=== PATIENT | female | born 1995 | race American Indian/Alaskan Native ===

== ENCOUNTER 2017-11-03 20:15 | Emergency (ER) | payer BC, OTHER ==
[2017-11-03 20:37] VITALS: BP 121/73
[2017-11-03] MEDS ORDERED: TESSALON PERLES PO ONE (22:58)
[2017-11-03] MEDS ORDERED: MOTRIN PO ONE (22:58)
--- NOTE | 2017-11-03 23:53 | XRay Report ---
FINAL REPORT EXAM: XR CHEST ROUTINE 2V HISTORY: Cough TECHNIQUE: PA and lateral views of the chest were obtained. PRIORS: None. FINDINGS: There are no focal consolidations to suggest pneumonia. No large pleural effusion. No pneumothorax. Cardiac silhouette and mediastinal structures are unremarkable. No acute osseous abnormality identified. IMPRESSION: No radiographic evidence of acute cardiopulmonary disease.
--- NOTE | 2017-11-04 00:19 | Emergency Department Report ---
- General Chief Complaint: Upper Respiratory Infection Stated Complaint: FLU LIKE SX Time Seen by Provider: 11/03/17 23:43 Source: patient Mode of arrival: Ambulatory Limitations: No Limitations - History of Present Illness Initial Comments: This is a 22-year-old male nontoxic, well nourished in appearance, no acute signs of distress presents to the ED with c/o of productive cough, fever, chills , sore throat, rhinorrhea, nasal congestion x2 days. Patient describes productive cough as yellow mucus production. Patient denies any sick contact. Patient denies any recent travels, long car, recent hospital stays. Patient denies any calf pain or calf tenderness. Patient denies any chest pain, short of breath, fever, chills, nausea, vomiting, hemoptysis, numbness, tingling, headache or stiff neck. Patient denies any allergies or PMH. MD Complaint: fever, cough, sore throat, rhinorrhea, nasal congestion -: days(s) (2) Severity: mild Severity scale (0 -10): 8 Quality: aching Consistency: constant Improves With: nothing Worsens With: nothing Associated Symptoms: fever, chills, rhinorrhea, nasal congestion, sore throat, cough. denies: myalgias, diaphoresis, headache, stiff neck, chest pain, shortness of breath, abdominal pain, nausea, vomiting, diarrhea, dysuria, rash, confusion, right sweats, weight loss, epistaxis, hoarseness, ear pain Treatments Prior to Arrival: none - Related Data Previous Rx's Medication Instructions Recorded Last Taken Type Amoxicillin/Potassium Clav 1 tab PO BID #20 tab.er.12h 08/31/15 Unknown Rx [Augmentin XR 1000MG 12HR] Ibuprofen [Motrin] 800 mg PO Q8HR PRN #45 tablet 08/31/15 Unknown Rx Prednisone [predniSONE 10 mg 10 mg PO .TAPER #1 tab.ds.pk 08/31/15 Unknown Rx (6-Day Pack, 21 Tabs)] Azithromycin [Zithromax Z-SHAHID] 250 mg PO DAILY #6 tablet 11/04/17 Unknown Rx Benzonatate [Tessalon Perle] 100 mg PO Q6H PRN #20 capsule 11/04/17 Unknown Rx Ibuprofen [Motrin] 600 mg PO Q8H PRN #30 tablet 03/30/18 Unknown Rx Prednisone [predniSONE 10 mg 10 mg PO .TAPER #1 tab.ds.pk 11/04/17 Unknown Rx (6-Day Pack, 21 Tabs)] Allergies Allergy/AdvReac Type Severity Reaction Status Date / Time No Known Allergies Allergy Unverified 08/31/15 09:08 ED Review of Systems ROS: Stated complaint: FLU LIKE SX Other details as noted in HPI Constitutional: chills, fever Eyes: denies: eye pain, eye discharge, vision change ENT: denies: ear pain, throat pain Respiratory: cough. denies: shortness of breath, wheezing Cardiovascular: denies: chest pain, palpitations Endocrine: no symptoms reported Gastrointestinal: denies: abdominal pain, nausea, diarrhea Genitourinary: denies: urgency, dysuria, discharge Musculoskeletal: denies: back pain, joint swelling, arthralgia Skin: denies: rash, lesions Neurological: denies: headache, weakness, paresthesias Psychiatric: denies: anxiety, depression Hematological/Lymphatic: denies: easy bleeding, easy bruising ED Past Medical Hx - Past Medical History Previous Medical History?: No - Surgical History Past Surgical History?: No - Social History Smoking Status: Current Every Day Smoker Substance Use Type: None - Medications Home Medications: Home Medications Medication Instructions Recorded Confirmed Last Taken Type Amoxicillin/Potassium Clav 1 tab PO BID #20 tab.er.12h 08/31/15 Unknown Rx [Augmentin XR 1000MG 12HR] Ibuprofen [Motrin] 800 mg PO Q8HR PRN #45 tablet 08/31/15 Unknown Rx Prednisone [predniSONE 10 mg 10 mg PO .TAPER #1 tab.ds.pk 08/31/15 Unknown Rx (6-Day Pack, 21 Tabs)] Azithromycin [Zithromax Z-SHAHID] 250 mg PO DAILY #6 tablet 11/04/17 Unknown Rx Benzonatate [Tessalon Perle] 100 mg PO Q6H PRN #20 capsule 11/04/17 Unknown Rx Ibuprofen [Motrin] 600 mg PO Q8H PRN #30 tablet 11/04/17 Unknown Rx Prednisone [predniSONE 10 mg 10 mg PO .TAPER #1 tab.ds.pk 11/04/17 Unknown Rx (6-Day Pack, 21 Tabs)] ED Physical Exam - General Limitations: No Limitations General appearance: alert, in no apparent distress - Head Head exam: Present: atraumatic, normocephalic - Eye Eye exam: Present: normal appearance, PERRL, EOMI Pupils: Present: normal accommodation - ENT ENT exam: Present: mucous membranes moist, TM's normal bilaterally, normal external ear exam - Expanded ENT Exam Expanded Ear exam: Present: normal external inspection Mouth exam: Present: normal external inspection, tongue normal. Absent: drooling, trismus, muffled voice, tongue elevation, laceration Teeth exam: Present: normal inspection Throat exam: Positive: tonsillar erythema, other (Uvula midline. No abscess or swelling noted.). Negative: tonsillomegaly, tonsillar exudate, R peritonsillar mass, L peritonsillar mass - Neck Neck exam: Present: normal inspection, full ROM. Absent: tenderness, meningismus, lymphadenopathy, thyromegaly - Respiratory Respiratory exam: Present: normal lung sounds bilaterally. Absent: respiratory distress, wheezes, rales, rhonchi, stridor, chest wall tenderness, accessory muscle use, decreased breath sounds, prolonged expiratory - Cardiovascular Cardiovascular Exam: Present: regular rate, normal rhythm, tachycardia, normal heart sounds. Absent: irregular rhythm, systolic murmur, diastolic murmur, rubs , gallop - GI/Abdominal GI/Abdominal exam: Present: soft, normal bowel sounds. Absent: distended, tenderness, guarding, rebound, rigid, diminished bowel sounds - Rectal Rectal exam: Present: deferred - Extremities Exam Extremities exam: Present: normal inspection, full ROM, normal capillary refill - Back Exam Back exam: Present: normal inspection, full ROM - Neurological Exam Neurological exam: Present: alert, oriented X3, normal gait - Psychiatric Psychiatric exam: Present: normal affect, normal mood - Skin Skin exam: Present: warm, dry, intact, normal color. Absent: rash ED Course Vital Signs 11/03/17 11/03/17 20:34 23:24 Temperature 100.4 F H Pulse Rate 98 H Respiratory 18 16 Rate Blood Pressure 121/73 O2 Sat by Pulse 98 Oximetry - Reevaluation(s) Reevaluation #1: 11/04/17 00:16 Patient is speaking in full sentences with no signs of distress noted. ED Medical Decision Making - Medical Decision Making This is a 22-year-old female that presents with upper respiratory infection. Patient is stable and was examined by me. Chest x-ray has been obtained and dictated by radiologist with normal exam. Patient is notified of x-ray results with no questions noted. Due to patient having symptoms of upper respiratory infection and worsening I will treat patient empirically with zpak. Patient was instructed to increase hydration, rest and take Motrin for fever episodes. Patient received motrin and tesslone perrls in the ED. Vitals stable. Patient is nonfebrile and normal heart rate. Patient was orally hydrated and patient tolerated well known nausea or vomiting. Patient was instructed Follow-up with a primary care doctor in 3-5 days or if symptoms worsen and continue return to emergency room as soon as possible. At time time of discharge, the patient does not seem toxic or ill in appearance. No acute signs of distress noted. Patient agrees to discharge treatment plan of care. No further questions noted by the patient. Critical care attestation.: If time is entered above; I have spent that time in minutes in the direct care of this critically ill patient, excluding procedure time. ED Disposition Clinical Impression: Upper respiratory infection Qualifiers: URI type: unspecified URI Qualified Code(s): J06.9 - Acute upper respiratory infection, unspecified Disposition: DC-01 TO HOME OR SELFCARE Is pt being admited?: No Does the pt Need Aspirin: No Condition: Stable Instructions: Upper Respiratory Infection (ED), Azithromycin (By mouth), Fever in Adults (ED), Ibuprofen (By mouth), Benzonatate (By mouth) Additional Instructions: Follow-up with a primary care doctor in 3-5 days or if symptoms worsen and continue return to emergency room as soon as possible. Prescriptions: Azithromycin [Zithromax Z-SHAHID] 250 mg PO DAILY #6 tablet Benzonatate [Tessalon Perle] 100 mg PO Q6H PRN #20 capsule PRN Reason: Cough Ibuprofen [Motrin] 600 mg PO Q8H PRN #30 tablet PRN Reason: Fever Prednisone [predniSONE 10 mg (6-Day Pack, 21 Tabs)] 10 mg PO .TAPER #1 tab.ds.pk Referrals: EVETTE KEBEDE MD [Primary Care Provider] - 3-5 Days PRIMARY CARE, [Referring] - 3-5 Days [facility] [Outside] - 3-5 Days [facility] [Outside] - 3-5 Days Forms: Work/School Release Form(ED)
== END 2017-11-04 00:33 | disposition home or self-care (01) ==
LOC: ED 20:15
DX: J06.9 Acute upper respiratory infection, unspecified (principal); F17.200 Nicotine dependence, unspecified, uncomplicated
CPT/HCPCS: 71046; 99283

== ENCOUNTER 2019-11-30 03:40 | Outpatient (CLI) | payer MEDICAID ==
[2019-11-30] MEDS ORDERED: LACTATED RINGERS 1,000 ML IV SCH (05:00)
--- NOTE | 2019-11-30 07:59 | Ultrasound Report ---
ULTRASOUND BIOPHYSICAL PROFILE / US OB BPP wo non-stress INDICATION: Term . COMPARISON: None available. FINDINGS: Transabdominal ultrasound with Doppler interrogation. heart rate is 139 beats per minute. breathing movement = 2 Gross body movement = 2 tone = 2 Qualitative amniotic fluid volume = 2 IMPRESSION: biophysical profile = 03/15 Signer Name: Celestina Nur MD Signed: 11/30/2019 7:55 AM Workstation Name: [id number]
[2019-11-30 08:33] VITALS: BP 115/59
== END 2019-11-30 09:27 | disposition home or self-care (01) ==
LOC: TRG 03:40 → APU 03:47 → TRG 09:27
PROVIDERS: ATTEND Obstetrics & Gynecology
DX: O62.9 Abnormality of forces of labor, unspecified (principal); O46.93 Antepartum hemorrhage, unspecified, third trimester; O48.0 Post-term pregnancy; Z3A.40 40 weeks gestation of pregnancy
CPT/HCPCS: 59025; 76819; 96360; 96361; J7120

== ENCOUNTER 2019-12-01 17:16 | Inpatient (IN) | payer MEDICAID ==
[2019-12-01] MEDS ORDERED: LACTATED RINGERS 1,000 ML ONE (17:35)
[2019-12-01] MEDS ORDERED: TERBUTALINE 1 MG/1 ML INJ SUB-Q PRN (17:56)
[2019-12-01] MEDS ORDERED: MINERAL OIL 30 ML ORAL LIQD PO PRN (17:56)
[2019-12-01] MEDS ORDERED: LIDOCAINE (2%) 20 MG/1 ML VIAL 20 ML MDV INFILTRATI ONE (17:56)
[2019-12-01] MEDS ORDERED: ePHEDrine SULFATE 50 MG/1 ML INJ IV PRN ×2 (17:56→19:04)
[2019-12-01] MEDS ORDERED: AMPICILLIN/NS 2 GM/100 ML 2 GM/100 ML BAG IV ONE (17:56)
[2019-12-01] MEDS ORDERED: fentaNYL 100 MCG/2 ML INJ IV PRN (17:56)
[2019-12-01] MEDS ORDERED: OXYTOCIN 20 UNIT/1000ML DRIP 20 UNITS/1,000 ML BAG IV SCH (18:00)
[2019-12-01] MEDS: LACTATED RINGERS 1,000 ML IV SCH ×3 (18:25→20:26)
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
[2019-12-01 18:50] LABS: Hematocrit 36.4 % (30.3-42.9); Mean Corpuscular HGB Conc 33 % (30-34); Mean Corpuscular Volume 89 fl (79-97); Platelet Count 285 K/mm3 (140-440); Red Blood Count 4.09 M/mm3 (3.65-5.03); Red Cell Distribution Width 15.1 % (13.2-15.2)
[2019-12-01] MEDS ORDERED: OXYTOCIN DRIP 30 UNITS/500 ML BAG IV SCH (19:00)
[2019-12-01] MEDS ORDERED: DEXMEDETOMIDINE 200 MCG/2 ML VIAL IV ONE (19:02)
[2019-12-01] MEDS ORDERED: NALOXONE 2 MG/2 ML INJ IV PRN (19:04)
--- NOTE | 2019-12-01 19:05 | Anesthesia Consultation ---
Anesthesia Consult and Med Hx Date of service: 12/01/19 - Airway Anesthetic Teeth Evaluation: Good ROM Head & Neck: Adequate Mental/Hyoid Distance: Adequate - Pulmonary Exam CTA: Yes - Cardiac Exam Cardiac Exam: RRR - Pre-Operative Health Status ASA Pre-Surgery Classification: ASA2, Emergency Proposed Anesthetic Plan: Epidural - Pulmonary Hx Asthma: No - Cardiovascular System Hx Hypertension: No - Central Nervous System Hx Seizures: No Hx Psychiatric Problems: No - Endocrine Hx Renal Disease: No Hx Hypothyroidism: No Hx Hyperthyroidism: No - Hematic Hx Anemia: No Hx Sickle Cell Disease: No - Other Systems Hx Alcohol Use: Yes (not during )
[2019-12-01] MEDS ORDERED: ePHEDrine SULFATE 50 MG/1 ML INJ ONE (19:44)
[2019-12-01] MEDS ORDERED: fentaNYL-BUPIV 2 MCG/ML-0.125% 200 MCG/100 ML BAG EPIDURAL SCH (20:00)
[2019-12-01] MEDS ORDERED: AMPICILLIN/NS 1 GM/50 ML 1 GM/50 ML BAG IV SCH (21:59)
[2019-12-02] MEDS: LACTATED RINGERS 1,000 ML IV SCH (00:06)
[2019-12-02] MEDS ORDERED: OXYTOCIN 10 UNIT/1 ML INJ ONE (00:36)
[2019-12-02] MEDS ORDERED: diphenhydrAMINE 25 MG CAP PO PRN (01:11)
[2019-12-02] MEDS ORDERED: LANOLIN/ZINC/DIMETHICONE (LANSINOH) 7 GM TP PRN (01:11)
[2019-12-02] MEDS ORDERED: MAGNESIUM HYDROXIDE (MOM) ORAL LIQD UDC PO PRN (01:11)
[2019-12-02] MEDS ORDERED: WITCH HAZEL/ GLYCERIN PAD TP PRN (01:11)
--- NOTE | 2019-12-02 01:21 | Procedure Note ---
OB Delivery Note - Vaginal Delivery presentation: vertex Delivery position: OA Intrapartum events: shoulder dystocia Delivery induction: none Delivery augmentation: pitocin Delivery monitor: external FHT, external uterine, internal FHT, internal uterine Route of delivery: Delivery placenta: spontaneous Delivery cord: 3 umbilical vessels Delivery laceration: 1st degree Delivery repair: vicryl Anesthesia: epidural Delivery comments: Spontaneous vaginal delivery at 00:27 of liveborn female infant weighing 9 lb. 2 oz. over 1st degree perineal laceration with apgars of 7/8. Epidural anesthesia. Right anterior shoulder dystocia, resolved with delivery of posterior arm. Baby placed skin to skin with mom immediately after . Baby bulb suctioned and dried. Spontaneous cry and respirations. 3 vessel cord double clamped and cut and baby taken to radiant warmer for further suctioning. Spontaneous delivery of intact placenta and membranes by turcios mechanism. EBL 350 cc. Pitocin given IM as IV had stopped working. Fundus firm and midline. First degree perineal laceration repaired with 2-0 vicryl. No other lacerations noted. Sponge count correct. Vaginal sweep negative.
[2019-12-02] MEDS ORDERED: IBUPROFEN 600 MG TAB PO SCH (02:00)
[2019-12-02 02:29] LABS: Basophils % (Auto) 0.2 % (0.0-1.8); Hematocrit 31.8 % (30.3-42.9); Hemoglobin 10.5 gm/dl (10.1-14.3); Lymphocytes # (Auto) 1.9 K/mm3 (1.2-5.4); Lymphocytes % (Auto) 11.3 % (13.4-35.0); Mean Corpuscular HGB Conc 33 % (30-34); Mean Corpuscular Volume 90 fl (79-97); Monocytes # (Auto) 1.1 K/mm3 (0.0-0.8); Monocytes % (Auto) 6.3 % (0.0-7.3); Platelet Count 241 K/mm3 (140-440); Red Blood Count 3.53 M/mm3 (3.65-5.03); Red Cell Distribution Width 15.3 % (13.2-15.2)
[2019-12-02] MEDS ORDERED: DOCUSATE SODIUM 100 MG CAP ONE (09:53)
[2019-12-02] MEDS: DOCUSATE SODIUM 100 MG CAP PO SCH (09:57)
[2019-12-02] MEDS ORDERED: FERROUS SULFATE 325 MG TAB PO ONE (11:00)
[2019-12-02] MEDS: SERTRALINE 100 MG TAB PO SCH (17:33)
[2019-12-02] MEDS: HYDROcodone/ACETAMINOPHEN 5-325 MG TAB PO PRN (17:38)
[2019-12-03] MEDS: HYDROcodone/ACETAMINOPHEN 5-325 MG TAB PO PRN ×3 (00:28→17:58)
[2019-12-03] MEDS: DOCUSATE SODIUM 100 MG CAP PO SCH ×3 (00:31→22:05)
[2019-12-03] MEDS: SERTRALINE 100 MG TAB PO SCH (10:37)
[2019-12-03] MEDS ORDERED: BENZOCAINE/MENTHOL 20/0.5% TOP SPRAY 56 GM TP PRN (11:59)
--- NOTE | 2019-12-03 12:02 | Progress Note ---
Assessment and Plan - Patient Problems (1) Status post normal vaginal delivery Current Visit: Yes Status: Acute Plan to address problem: PPD 1 - perineal pain Continue routine orders Anticipate discharge in 24 hours (2) Single live Current Visit: Yes Status: Acute (3) Perineal pain Current Visit: Yes Status: Acute Plan to address problem: Dermoplast ordered Encouraged sitz baths (4) Leukocytosis Current Visit: Yes Status: Acute Plan to address problem: Asymptomatic Repeat CBC ordered Subjective - Subjective Date of service: 12/03/19 Principal diagnosis: PPD#1, s/p Interval history: see PAYROLL COORDINATOR - H&P and OB Delivery Procedure Note Patient reports: appetite normal, voiding normally, pain poorly controlled (c/o perineal pain and difficulties sitting), other (denies fever, chills, malaise, palpitations, coughing or SOB), no dizzy ambulation [place]: doing well Objective - Vital Signs Latest vital signs: Vital Signs Temp Pulse Resp BP Pulse Ox 12/03/19 00:35 98.6 F 17 12/03/19 00:20 90 116/74 99 12/02/19 17:38 20 12/02/19 17:15 97.7 F 87 18 110/64 97 12/02/19 13:03 98.4 F 94 H 18 107/57 98 Intake and Output 12/02/19 12/03/19 12/03/19 23:59 07:59 15:59 Intake Total 240 240 Balance 240 240 Intake: Oral 240 240 Other: Total, Intake Amount 240 240 # Voids Void 1 1 - Exam Cardiovascular: Present: Regular rate Lungs: Present: Clear to auscultation Abdomen: Present: normal appearance, soft Vulva: both: laceration/episiotomy (well approximated) Uterus: Present: normal, firm, fundal height at umbilicus Extremities: Present: normal Comments: small lochia
[2019-12-03 13:21] LABS: Hematocrit 33.8 % (30.3-42.9); Hemoglobin 11.1 gm/dl (10.1-14.3); Mean Corpuscular HGB Conc 33 % (30-34); Mean Corpuscular Volume 90 fl (79-97); Platelet Count 266 K/mm3 (140-440); Red Blood Count 3.77 M/mm3 (3.65-5.03); Red Cell Distribution Width 15.2 % (13.2-15.2)
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
[2019-12-04] MEDS: HYDROcodone/ACETAMINOPHEN 5-325 MG TAB PO PRN ×2 (05:38→14:31)
[2019-12-04] MEDS: SERTRALINE 100 MG TAB PO SCH (09:25)
[2019-12-04] MEDS: DOCUSATE SODIUM 100 MG CAP PO SCH (09:26)
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
[2019-12-04 18:42] VITALS: BP 118/74
== END 2019-12-04 15:50 | disposition home or self-care (01) | DRG 775 ==
LOC: TRG 17:16 → LD 17:32 → OB 12-02 09:22
PROVIDERS: ADMIT Obstetrics & Gynecology; ATTEND Obstetrics & Gynecology
PROC: 10E0XZZ Delivery of Products of Conception, External Approach (ICD-10-PCS; principal; 2019-12-02)
PROC: 3E033VJ Introduction of Other Hormone into Peripheral Vein, Percutaneous Approach (ICD-10-PCS; 2019-12-02)
PROC: 0HQ9XZZ Repair Perineum Skin, External Approach (ICD-10-PCS; 2019-12-02)
PROC: 3E0R3BZ Introduction of Anesthetic Agent into Spinal Canal, Percutaneous Approach (ICD-10-PCS; 2019-12-02)
PROC: 00HU33Z Insertion of Infusion Device into Spinal Canal, Percutaneous Approach (ICD-10-PCS; 2019-12-02)
DX: O99.824 Streptococcus B carrier state complicating childbirth (principal); Z3A.40 40 weeks gestation of pregnancy; Z37.0 Single live birth; O99.344 Other mental disorders complicating childbirth; F32.9 Major depressive disorder, single episode, unspecified; O66.0 Obstructed labor due to shoulder dystocia; O70.0 First degree perineal laceration during delivery
CPT/HCPCS: 36415; 59025; 76819; 85025; 85027; 86850; 86900; 86901; 96360; 96361; G0378; J0290; J2590; J3010; J3490; J7120